=== PATIENT | male | born 1995 | race Two or more races ===

== ENCOUNTER 2025-07-24 10:19 | Outpatient (REF) | payer MEDICAID, SELFPAY ==
--- NOTE | ~2025-07-24 | XR_ITS ---
EXAMINATION: XR TIBIA AND FIBULA, RIGHT CLINICAL INFORMATION: persistent nightly lower leg pain COMPARISON: None available. TECHNIQUE: 4 views of the right tibia and fibula were obtained. FINDINGS: No evidence of acute fracture or malalignment. No suspicious bony lesion. Knee and ankle joint articulation is maintained. No radiopaque foreign body. No abnormal soft tissue calcification.. XR/XR tibia fibula RT 2V IMPRESSION: No radiographic evidence of acute osseous findings. Electronically signed by: Lefty Ansari MD 07/24/2025 10:56 AM EDT
--- OUTSIDE RECORDS SUMMARY | 2025-07-24 09:30 | XMS_ITS | Encounter Summary ---
Author Organization [employer] Address [address] [place] [address] Care Team Providers Care Chemical Maker Name Role Phone Alyssia Grace DO Primary Care Provider Encounter Details Date Type Department Care Team (Late st Contact Info) Description 07/24/2025 9:30 AM EDT Office Visit [facility] MEDICINE [address] [place] [address] Alyssia Grace DO [address] [place], [place] [id number] Routine history and physical examination of adult (Primary Dx); Elevated BP without diagnosis of hypertension; Bradycardia; Palpitations; Snoring; Sleep-disordered breathing; Epigastric pain; Chronic pain of right lower extremity; Decreased visual acuity; BMI 26.0-26.9,adult; Dietary counseling; Exercise counseling Social History Tobacco Use Types Packs/Day Years Used Date Smoking Tobacco: Never Smokeless Tobacco: Never Alcohol Use Standard Drinks/Week Comments Never 0 (1 standard drink = 0.6 oz pur e alcohol) Depression Answer Date Recorded Patient Health Questionnaire-9 Score 2 07/24/2025 Patient Health Questionnaire-9 Score 2 07/24/2025 Last PHQ-9: Questionnaire Data Not on file 1 Housing Stability Answer Date Recorded What is your housing situation today? I have aniya olivas 07/16/[address] you li ve. Do you have problems with any of the following? None of the above 07/16/2025 Food Insecurity Answer Date Recorded Within the past 12 months, y ou worried that your food would run out before you got money to buy more: Never True 07/16/2025 Within the past 12 months,th e food you bought just didn't last and you didn't have enough money to get more: Never True 04/2025 Transportation Answer Date Recorded In the past 12 months, has l ack of transportation kept you from medical appts, meetings, work or from getting things needed for daily living? No 07/16/2025 Utilities Answer Date Recorded In the past 12 months, has t he electric, gas, oil or water company threatened to shut off services in your home? No 07/16/2025 Depression Answer Date Recorded Patient Health Questionnaire-2 Score 0 07/24/2025 Internet Access Answer Date Recorded Internet Access Q1 Yes 07/16/2025 Internet Access Q2 Not on file 07/16/2025 Sex and Gender Information Value Date Recorded Sex Assigned at Male 02/14/2025 8:07 AM EDT Legal Sex Male 8:04 AM EDT Gender Identity Male 02/14/2025 8:07 AM EDT Sexual Orientation Straight 02/14/2025 8: 07 AM EDT documented as of this encounter Last Filed Vital Signs Vital Sign Reading Time Taken Comments Blood Pressure 160/90 07/24/2025 9:34 AM EDT Pulse 48 07/24/2025 9:34 AM EDT Temperature 36.8 C (98.3 F) 07/24/2025 9:34 AM EDT Respiratory Rate 21 07/24/2025 9:34 AM EDT Oxygen Saturation 99% 07/24/2025 9:34 AM EDT Inhaled Oxygen Concentration - - Weight 99.8 kg (220 lb) 07/24/2025 9:34 AM EDT Height 193 cm (6' 4 ) 07/24/2025 9:34 AM EDT Body Mass Index 26.78 07/24/2025 9:34 AM EDT documented in this encounter Functional Status * Over the past 2 weeks, how often have you been bothered by any of the following problems? Question Answer Date of Assessment Author Patient Health Questionnaire -2 Score 0 07/24/2025 9:35 AM EDT Fernanda Hernandez MA * Little interest or pleasure in doing things Answer Date of Assessment Author Not at all 07/24/2025 9:35 AM EDT Monty Hernandez MA * Feeling down, depressed, or hopeless Answer Date of Assessment Author Not at all 07/24/2025 9:35 AM EDMonty Cooper MA * Trouble falling or staying asleep, or sleeping too much Answer Date of Assessment Author Several days 07/24/2025 9:35 AM Monty Daly MA * Feeling tired or having little energy Answer Date of Assessment Author Several days 07/24/2025 9:35 AM Monty Daly MA * Poor appetite or overeating Answer Date of Assessment Author Not at all 07/24/2025 9:35 AM Monty Daly MA * Feeling bad about yourself - or that you are a failure or have let yourself or your family down Answer Date of Assessment Author Not at all 07/24/2025 9:35 AM Fernanda Daly MA * Trouble concentrating on things, such as reading the newspaper or watching television Answer Date of Assessment Author Not at all 07/24/2025 9:35 AM Monty Daly MA * Moving or speaking so slowly that other people could have noticed? Or the opposite - being so fidgety or restless that you have been moving around a lot more than usual. Answer Date of Assessment Author Not at all 07/24/2025 9:35 AM Monty Daly MA * Thoughts that you would be better off or hurting yourself in some way Answer Date of Assessment Author Not at all 07/24/2025 9:35 AM Monty Daly MA * Patient Health Questionnaire-9 Score Answer Date of Assessment Author 2 07/24/2025 9:35 AM Monty Daly MA * How difficult have these problems made it for you to do your work, take care of things at home, or get along with other people? Answer Date of Assessment Author Not difficult at all 07/24/2025 9:35 AM Fernanda Funez MA documented as of this encounter Plan of Treatment Scheduled Orders Name Type Priority Associated Diagnoses Orde r Schedule T4, Free Lab Routine Routine history and physical examination of adult Elevated BP without diagnosis of hypertension Bradycardia Palpitations Snoring Sleep-disordered breathing Epigastric pain Chronic pain of right lower extremity Decreased visual acuity BMI 26.0-26.9,adult Expected: 07/24/2025 (Approximate), Expires: 07/24/2026 Vitamin D, 25-Hydroxy, Total, Immunoassay Lab Routine Routine history and physical examination of adult Elevated BP without diagnosis of hypertension Bradycardia Palpitations Snoring Sleep-disordered breathing Epigastric pain Chronic pain of right lower extremity Decreased visual acuity BMI 26.0-26.9,adult Expected: 07/24/2025 (Approximate), Expires: 07/24/2026 Lipid Panel, Standard Lab Routine Routine history and physical examination of adult Elevated BP without diagnosis of hypertension Bradycardia Palpitations Snoring Sleep-disordered breathing Epigastric pain Chronic pain of right lower extremity Decreased visual acuity BMI 26.0-26.9,adult Expected: 07/24/2025 (Approximate), Expires: 07/24/2026 TSH Lab Routine Routine history and physical examination of adult Elevated BP without diagnosis of hypertension Bradycardia Palpitations Snoring Sleep-disordered breathing Epigastric pain Chronic pain of right lower extremity Decreased visual acuity BMI 26.0-26.9,adult Expected: 07/24/2025 (Approximate), Expires: 07/24/2026 Hepatic Function Panel Lab Routine Routine history and physical examination of adult Elevated BP without diagnosis of hypertension Bradycardia Palpitations Snoring Sleep-disordered breathing Epigastric pain Chronic pain of right lower extremity Decreased visual acuity BMI 26.0-26.9,adult Expected: 07/24/2025 (Approximate), Expires: 07/24/2026 Hemoglobin A1c Lab Routine Routine history and physical examination of adult Elevated BP without diagnosis of hypertension Bradycardia Palpitations Snoring Sleep-disordered breathing Epigastric pain Chronic pain of right lower extremity Decreased visual acuity BMI 26.0-26.9,adult Expected: 07/24/2025 (Approximate), Expires: 07/24/2026 Basic Metabolic Panel Lab Routine Routine history and physical examination of adult Elevated BP without diagnosis of hypertension Bradycardia Palpitations Snoring Sleep-disordered breathing Epigastric pain Chronic pain of right lower extremity Decreased visual acuity BMI 26.0-26.9,adult Expected: 07/24/2025 (Approximate), Expires: 07/24/2026 CBC Lab Routine Routine history and physical examination of adult Elevated BP without diagnosis of hypertension Bradycardia Palpitations Snoring Sleep-disordered breathing Epigastric pain Chronic pain of right lower extremity Decreased visual acuity BMI 26.0-26.9,adult Expected: 07/24/2025, Expires: 07/24/2026 Albumin, Random Urine W/Creatinine Lab Routine Routine history and physical examination of adult Elevated BP without diagnosis of hypertension Bradycardia Palpitations Snoring Sleep-disordered breathing Epigastric pain Chronic pain of right lower extremity Decreased visual acuity BMI 26.0-26.9,adult Expected: 07/24/2025 (Approximate), Expires: 07/24/2026 Hepatitis B surface antigen, EIA Lab Routine Routine history and physical examination of adult Elevated BP without diagnosis of hypertension Bradycardia Palpitations Snoring Sleep-disordered breathing Epigastric pain Chronic pain of right lower extremity Decreased visual acuity BMI 26.0-26.9,adult Expected: 07/24/2025 (Approximate), Expires: 07/24/2026 Chlamydia/N. Gonorrhoeae RNA, TMA, Urogenitial Microbiology Routine Routine history and physical examination of adult Elevated BP without diagnosis of hypertension Bradycardia Palpitations Snoring Sleep-disordered breathing Epigastric pain Chronic pain of right lower extremity Decreased visual acuity BMI 26.0-26.9,adult Ordered: 07/24/2025 HIV-1/2 Antigen and Antibodies, Fourth Generation, with Reflexes Lab Routine Routine history and physical examination of adult Elevated BP without diagnosis of hypertension Bradycardia Palpitations Snoring Sleep-disordered breathing Epigastric pain Chronic pain of right lower extremity Decreased visual acuity BMI 26.0-26.9,adult Expected: 07/24/2025 (Approximate), Expires: 07/24/2026 Hepatitis C Antibody with Reflex to HCV, RNA, Quantitative, Real-Time PCR Lab Routine Routine history and physical examination of adult Elevated BP without diagnosis of hypertension Bradycardia Palpitations Snoring Sleep-disordered breathing Epigastric pain Chronic pain of right lower extremity Decreased visual acuity BMI 26.0-26.9,adult Expected: 07/24/2025, Expires: 07/24/2026 RPR (Monitor) with Reflex to Titer Lab Routine Routine history and physical examination of adult Elevated BP without diagnosis of hypertension Bradycardia Palpitations Snoring Sleep-disordered breathing Epigastric pain Chronic pain of right lower extremity Decreased visual acuity BMI 26.0-26.9,adult Expected: 07/24/2025, Expires: 07/24/2026 Hepatitis B Surface Antibody, Qualitative Lab Routine Routine history and physical examination of adult Elevated BP without diagnosis of hypertension Bradycardia Palpitations Snoring Sleep-disordered breathing Epigastric pain Chronic pain of right lower extremity Decreased visual acuity BMI 26.0-26.9,adult Expected: 07/24/2025 (Approximate), Expires: 07/24/2026 Varicella zoster antibody, IgG Lab Routine Routine history and physical examination of adult Elevated BP without diagnosis of hypertension Bradycardia Palpitations Snoring Sleep-disordered breathing Epigastric pain Chronic pain of right lower extremity Decreased visual acuity BMI 26.0-26.9,adult Expected: 07/24/2025 (Approximate), Expires: 07/24/2026 Measles, Mumps, and Rubella (MMR) Antibodies (IgG) Panel, Immune Status Lab Routine Routine history and physical examination of adult Elevated BP without diagnosis of hypertension Bradycardia Palpitations Snoring Sleep-disordered breathing Epigastric pain Chronic pain of right lower extremity Decreased visual acuity BMI 26.0-26.9,adult Expected: 07/24/2025 (Approximate), Expires: 07/24/2026 Hepatitis A Antibody, Total Lab Routine Routine history and physical examination of adult Elevated BP without diagnosis of hypertension Bradycardia Palpitations Snoring Sleep-disordered breathing Epigastric pain Chronic pain of right lower extremity Decreased visual acuity BMI 26.0-26.9,adult Expected: 07/24/2025 (Approximate), Expires: 07/24/2026 Hepatitis B Core Antibody, Total Lab Routine Routine history and physical examination of adult Elevated BP without diagnosis of hypertension Bradycardia Palpitations Snoring Sleep-disordered breathing Epigastric pain Chronic pain of right lower extremity Decreased visual acuity BMI 26.0-26.9,adult Expected: 07/24/2025 (Approximate), Expires: 07/24/2026 T-SPOT .TB Lab Routine Routine history and physical examination of adult Elevated BP without diagnosis of hypertension Bradycardia Palpitations Snoring Sleep-disordered breathing Epigastric pain Chronic pain of right lower extremity Decreased visual acuity BMI 26.0-26.9,adult Expected: 07/24/2025 (Approximate), Expires: 07/24/2026 documented as of this encounter Procedures Procedure Name Priority Date/Time Associated Diagnosis Comments XR TIBIA FIBULA 2 VIEWS RIGHT Routine 07/24/2025 10:45 AM EDT Routine history and physical examination of adult Elevated BP without diagnosis of hypertension Bradycardia Palpitations Snoring Sleep-disordered breathing Epigastric pain Chronic pain of right lower extremity Decreased visual acuity BMI 26.0-26.9,adult documented in this encounter Results * XR Tibia Fibula 2 Views Right (07/24/2025 10:45 AM EDT) Anatomical Region Laterality Modality Lower Extremities, Lower Leg Right Rad iographic Imaging 07/24/2025 10:4 5 AM EDT Narrative 07/24/2025 10:59 AM EDT [address] [address] XRay Report Signed Patient: Marco Chapman MR#: [id number] : 1995 Acct:[id number] Age/Sex: 29 / M ADM Date: 07/24/25 Loc: .HHCX Attending Dr: Alyssia Grace DO Ordering Physician: Alyssia Grace DO Date of Service: 07/24/25 Procedure(s): XR tibia fibula RT 2V Accession Number(s): [id number] cc: Alyssia Grace DO Reason for Exam: persistent nightly lower leg pain EXAMINATION: XR TIBIA AND FIBULA, RIGHT CLINICAL INFORMATION: persistent nightly lower leg pain COMPARISON: None available. TECHNIQUE: 4 views of the right tibia and fibula were obtained. FINDINGS: No evidence of acute fracture or malalignment. No suspicious bony lesion. Knee and ankle joint articulation is maintained. No radiopaque foreign body. No abnormal soft tissue calcification.. XR/XR tibia fibula RT 2V IMPRESSION: No radiographic evidence of acute osseous findings. Electronically signed by: Lefty Ansari MD 07/24/2025 10:56 AM EDT Dictated By: Lefty Ansari MD Signed By: <Electronically signed by Lefty Ansari MD in OV> 07/24/25 1056 DD/ 1045 TD/TT: 07/24/25 1049 Test Analyst: SONIDO Procedure Note Donotuseinterpreter, Image - 07/24/[address] [address] XRay Report Signed Patient: Marco ChapmanMR#: [id number] : 1995Acct:[id number] Age/Sex: 29 / MADM Date: 07/24/25 Loc: HO.HHCX Attending Dr: Alyssia Grace DO Ordering Physician: Alyssia Grace DO Date of Service: 07/24/25 Procedure(s): XR tibia fibula RT 2V Accession Number(s): [id number] cc: Alyssia Grace DO Reason for Exam: persistent nightly lower leg pain EXAMINATION: XR TIBIA AND FIBULA, RIGHT CLINICAL INFORMATION: persistent nightly lower leg pain COMPARISON: None available. TECHNIQUE: 4 views of the right tibia and fibula were obtained. FINDINGS: No evidence of acute fracture or malalignment. No suspicious bony lesion. Knee and ankle joint articulation is maintained. No radiopaque foreign body. No abnormal soft tissue calcification.. XR/XR tibia fibula RT 2V IMPRESSION: No radiographic evidence of acute osseous findings. Electronically signed by: Lefty Ansari MD 07/24/2025 10:56 AM EDT Dictated By: Lefty Ansari MD Signed By: <Electronically signed by Lefty Ansari MD in OV> 07/24/25 1056 DD/ 1045 TD/TT: 07/24/25 1049 Test Analyst: SONIDO Alyssia Grace DO IMG XR PROCEDURES Final Resu lt documented in this encounter Visit Diagnoses Diagnosis Routine history and physical examination of adult- Primary Elevated BP without diagnosis of hypertension Bradycardia Other specified cardiac dysrhythmias Palpitations Snoring Other dyspnea and respiratory abnormality Sleep-disordered breathing Other sleep disturbances Epigastric pain Abdominal pain, epigastric Chronic pain of right lower extremity Decreased visual acuity BMI 26.0-26.9,adult Dietary counseling Dietary surveillance and counseling Exercise counseling documented in this encounter Additional Health Concerns Assessment Noted Time PHQ-9 Depression Total Score: 2 07/24/20 9:35 AM EDT documented as of this encounter Care Teams Chemical Maker Relationship Specialty Start Date End Date Alyssia Grace DO [address] [place] [id number] PCP - General Family Medicine 07/24/25 documented as of this encounter
--- OUTSIDE RECORDS SUMMARY | 2025-07-24 12:16 | XMS_ITS | Clinical Summary ---
Author Organization [employer] Address [address] [place] [address] Care Team Providers Care Bulk Folder Name Role Phone Alyssia Grace DO Primary Care Provider Allergies No known active allergies Medications gabapentin (Neurontin) 300 MG capsule Take 1 capsule (300 mg) by mouth at bedtime. 30 capsule 3 5 07/24/20 26 Active omeprazole OTC (PriLOSEC OTC) 20 MG EC tablet Take 1 tablet (20 mg) by mouth before breakfast. Do not crush, chew, or split. 30 tablet 3 5 07/24/20 26 Active Blood Pressure kit 1 each 1 (one) time per week. 1 kit Active acetaminophen (Tylenol 8 Hour) 650 MG ER tablet Take 1 tablet (650 mg) by mouth every 8 (eight) hours if needed for mild pain. Do not crush, chew, or split. 40 tablet 1 5 08/23/20 25 Active Diclofenac Sodium 1 % gel Apply 2 g topically if needed in the morning, at noon, in the evening, and at bedtime (pain). 150 g 3 5 Active Encounters Date Type Department Care Team Description 07/24/2025 9:30 AM EDT Office Visit [facility] MEDICINE [address] [place] [address] Alyssia Grace DO Routine history and physical examination of adult (Primary Dx); Elevated BP without diagnosis of hypertension; Bradycardia; Palpitations; Snoring; Sleep-disordered breathing; Epigastric pain; Chronic pain of right lower extremity; Decreased visual acuity; BMI 26.0-26.9,adult; Dietary counseling; Exercise counseling 07/24/2025 Travel 07/18/2025 Telephone [facility] MED[facility] [address] [place] [address] Alyssia Grace DO Chart Prep 07/16/2025 Patient Outreach [facility] [address] [place] [address] Alyssia Grace, Pre-visit Planning (SDOH screening negative and tobacco screening negative) from Last 3 Months Family History Medical History Relation Name Comments Diabetes Mother Hypertension Mother Stomach cancer Mother's Sister 1 Breast cancer Mother's Sister 2 Prediabetes Sister Substance use Sister Relation Name Status Comments Mother Mother's Sister 1 Mother's Sister 2 Sister Social History Tobacco Use Types Packs/Day Years Used Date Smoking Tobacco: Never Smokeless Tobacco: Never Tobacco Cessation:Counseling Given: Not Answered Alcohol Use Standard Drinks/Week Comments Never 0 [...] Orientation Straight 02/14/2025 8: 07 AM EDT Last Filed Vital Signs Vital Sign Reading [...] Mass Index 26.78 07/24/2025 9:34 AM EDT Plan of Treatment Health Maintenance Due Date Last Done Comments Dental Oral Exam 1995 Dental Prophylaxis 1993 Dental X-Ray: Full Mouth 1993 HIV Screening 1993 Family Planning (PISQ) 2008 HPV Vaccines (1 - Male 3-dos e series) 2008 Hepatitis C Screening 2011 DTaP/Tdap/Td Vaccines (1 - Tdap) 2012 Hepatitis B Vaccines (1 of 3 - 19+ 3-dose series) 2012 COVID-19 Vaccine (1 - 2023-2 5 season) 2025 Influenza Vaccine (#1) 2025 Dental X-Ray: Bitewings 02/28/2026 02/27/2025 SDOH Screening 07/16/2026 07/16/2025 Alcohol/Substance Use Screening 07/24/2026 07/24/2025 Depression Screening 07/24/2026 07/24/2025, 07/24/2025 Disability Screening 07/24/2026 07/24/2025 Tobacco Screening 07/24/2026 07/24/2025 Zoster Vaccines (1 of 2) 2043 RSV Patients and Patients Aged 60 years or older (1 - 1-dose 75+ series) 2068 HIB Vaccines Aged Out No longer eligi ble based on patient's age to complete this topic Hepatitis A Vaccines Aged Out No long er eligible based on patient's age to complete this topic IPV Vaccines Aged Out No longer eligi ble based on patient's age to complete this topic Meningococcal B Vaccine Aged Out No l onger eligible based on patient's age to complete this topic Meningococcal Vaccine Aged Out No jose nazia eligible based on patient's age to complete this topic Pneumococcal Vaccine: Pediatrics (0 to 5 Years) and At-Risk Patients (6 to 49) Years Aged Out No longer eligible b ased on patient's age to complete this topic RSV under 20 months Aged Out No longe r eligible based on patient's age to complete this topic Rotavirus Vaccines Aged Out No longer eligible based on patient's age to complete this topic Procedures Procedure Name Priority Date/Time Associated Diagnosis Comments XR TIBIA FIBULA 2 VIEWS RIGHT Routine 07/24/2025 10:45 AM EDT Routine history and physical examination of adult Elevated BP without diagnosis of hypertension Bradycardia Palpitations Snoring Sleep-disordered breathing Epigastric pain Chronic pain of right lower extremity Decreased visual acuity BMI 26.0-26.9,adult BITEWING - SINGLE RADIOGRAPHIC IMAGE Routine 02/27/2025 11:30 AM EDT Dental caries from Last 3 Months or Most Recently Relevant to Health Maintenance Results * XR Tibia Fibula 2 Views Right (07/24/2025 10:45 AM EDT) Anatomical Region Laterality Modality Lower Extremities, Lower Leg Right Rad iographic Imaging 07/24/2025 10:4 5 AM EDT Narrative 07/24/2025 10:59 AM EDT [address] [address] XRay Report Signed Patient: Maroc Chapman MR#: [id number] : 1995 Acct:[id number] Age/Sex: 29 / M ADM Date: 07/24/25 Loc: HO.HHCX Attending Dr: Alyssia Grace DO Ordering Physician: Alyssia Grace DO Date of Service: 07/24/25 Procedure(s): XR tibia fibula RT 2V Accession Number(s): [id number] cc: Alyssia Grace DO Reason for Exam: [...] Lefty Ansari MD 07/24/2025 10:56 AM EDT RP Dictated By: Lefty Ansari MD Signed By: <Electronically signed by Lefty Ansari MD in OV> 07/24/25 1056 DD/ 1045 TD/TT: 07/24/25 1049 Document Processor: SONIDO Procedure Note Donotuseinterpreter, Image - 07/24/[address] [address] XRay Report Signed Patient: Marco ChapmanMR#: [id number] : 1995Acct:[id number] Age/Sex: 29 / MADM Date: 07/24/25 Loc: HO.HHCX Attending Dr: Alyssia Grace DO Ordering Physician: Alyssia Grace DO Date of Service: 07/24/25 Procedure(s): XR tibia fibula RT 2V Accession Number(s): [id number] cc: Alyssia Grace DO Reason for Exam: [...] Lefty Ansari MD 07/24/2025 10:56 AM EDT RP Dictated By: Lefty Ansari MD Signed By: <Electronically signed by Lefty Ansari MD in OV> 07/24/25 1056 DD/ 1045 TD/TT: 07/24/25 1049 Document Processor: SONIDO Alyssia Grace DO IMG XR PROCEDURES Final Resu lt from Last [address] [place] [address] [address] [place] [address] LIMITED HSN FULL DENTAL-[facility] MEDICAID STAND ADULT Care Teams Bulk Folder Relationship Specialty Start Date End Date Alyssia Grace DO [address] [place] [id number] PCP - General Family Medicine 07/24/25
--- OUTSIDE RECORDS SUMMARY | 2025-07-24 12:16 | XMS_ITS | Encounter Summary ---
Author Organization [facility] Address [address] [place] [address] Care Team Providers Care Homicide Squad Sergeant Name Role Phone Alyssia Grace DO Primary Care Provider Encounter Details Date Type Department Care Team (Latest Contact Info) Description 07/24/2025 Travel Social History Tobacco Use Types Packs/Day Years [...] AM EDT documented as of this encounter Functional Status * Over the past 2 weeks, how often have you been bothered by any of the following problems? Question Answer Date of Assessment Author Patient Health Questionnaire -2 Score 0 07/24/2025 9:35 AM EDT Fernanda Hernandez MA * Little interest or pleasure in doing things Answer Date of Assessment Author Not at all 07/24/2025 9:35 AM NGAT Monty Hernandez MA * Feeling down, depressed, or hopeless Answer Date of Assessment Author Not at all 07/24/2025 9:35 AM NGAT Monty Hernandez MA * Trouble falling or staying asleep, or sleeping too much Answer Date of Assessment Author Several days 07/24/2025 9:35 AM EDT Monty Hernandez MA * Feeling tired or having little energy Answer Date of Assessment Author Several days 07/24/2025 9:35 AM NGAT Monty Hernandez MA * Poor appetite or overeating Answer Date of Assessment Author Not at all 07/24/2025 9:35 AM NGAT Monty Hernandez MA * Feeling bad about yourself - or that you are a failure or have let yourself or your family down Answer Date of Assessment Author Not at all 07/24/2025 9:35 AM NGAT Monty Hernandez MA * Trouble concentrating on things, such as reading the newspaper or watching television Answer Date of Assessment Author Not at all 07/24/2025 9:35 AM NGAT Monty Hernandez MA * Moving or speaking so slowly [...] 9:35 AM EDT Monty Hernandez MA * Patient Health Questionnaire-9 Score Answer Date of Assessment Author 2 07/24/2025 9:35 AM EDT Monty Hernandez MA * How difficult have these problems made it for you to do your work, take care of things at home, or get along with other people? Answer Date of Assessment Author Not difficult at all 07/24/2025 9:35 AM EDT Fernanda Chew MA documented as of this encounter Plan of Treatment Not on file documented as of this encounter Visit Diagnoses Not on filedocumented in this encounter Additional Health Concerns Assessment Noted Time PHQ-9 Depression Total Score: 2 07/24/20 9:35 AM EDT documented as of this encounter Care Teams Homicide Squad Sergeant Relationship Specialty Start Date End Date Alyssia Grace DO [address] [place] [id number] PCP - General Family Medicine 07/24/25 documented as of this encounter
--- OUTSIDE RECORDS SUMMARY | 2025-07-24 12:16 | XMS_ITS | Patient Health Record ---
Author Organization [facility] Address [address] [place] [address] Care Team Providers Care Professor Of Education Name Role Phone [facility] Primary Care Provider Unavailable Socorro Sal Unavailable [phone] Reason For Referral No Information Plan Of Treatment No Information Insurance Providers Payer Name Payer Address Payer Phone Subscriber Number Group Number Insured Name Patient Relationship to Insured Coverage Start Date Coverage End Date [place] Medicaid Standard [address] [place] [address] [id number] Damien Feliciano Self - patient is the insured 1 Insurance Pending [address] [place] [address] Damien Feliciano Self - patient is the insured 0
[2025-07-24 13:25] LABS: Hematocrit 47.8 % (42.0-52.0); Hemoglobin 15.0 g/dl (14.0-18.0); Mean Corpuscular HGB Conc 31.4 g/dl (31.0-36.0); Mean Corpuscular Hemoglobin 26.4 pg (27.0-33.0); Mean Corpuscular Volume 84.2 fL (80.0-98.0); NRBC Abs Auto 0.000 X10*3/uL (0.0-0.012); NRBC Pct Auto 0.0 /100WBC (0.0-0.2); Platelet Count 345 X10*3/uL (160-400); Red Blood Count 5.68 X10*6/uL (4.60-5.80); White Blood Count 9.0 X10*3/uL (4.8-10.8)
[2025-07-24 14:10] LABS: Microalbum/Creatinine Ratio Ur 3.9 ug/mg cr (<30)
[2025-07-24 14:17] LABS: Hemoglobin A1C 141.3173 umol/L; Total Hemoglobin (HGBA1C) 3755.0614 umol/L
[2025-07-24 14:33] LABS: Alanine Aminotransferase 55 U/L (0-40); Albumin Level 5.4 g/dL (3.5-5.0); Alkaline Phosphatase 78 U/L (39-117); Anion Gap 12 (12-20); Aspartate Amino Transferase 38 U/L (5-37); Blood Urea Nitrogen 9 mg/dL (9-16); Calcium 9.9 mg/dL (8.4-10.2); Carbon Dioxide 28 mmol/L (22-29); Chloride 107 mmol/L (96-108); Cholesterol 247 mg/dL (<200); Estimated Glomerular Filt Rate > 60; Free T4 (Free Thyroxine) 0.98 ng/dL (0.71-1.85); HDL Cholesterol 43 mg/dL (>40); Potassium 3.5 mmol/L (3.3-5.1); Sodium 143 mmol/L (135-145); Thyroid Stimulating Hormone 1.22 uIU/mL (0.32-4.0); Total Protein 8.0 g/dL (6.5-8.0); Triglycerides 96 mg/dL (<150)
[2025-07-25 04:50] LABS: HBS Num1 56.50 mIU/mL (0-7.99); HBc Num1 0.06 S/CO (0.00-0.79); HBsAGNum1 0.55 S/CO (0.00-0.99); HIV Num 1 0.05 S/CO (0.00-0.99); Hepatitis B Surface Antigen Negative (Negative); ~HepC Num1 0.05 S/CO (0.00-0.79); ~Hepatitis B Surface Antibody REACTIVE (Nonreactive); ~Hepatitis C Antibody Nonreactive (Nonreactive)
[2025-07-25 06:33] LABS: Rubeola IgG (Measles) 232.00 AU/mL
[2025-07-26 03:41] LABS: ~Hepatitis A Antibody IgG 0.28 S/CO (0.00-0.99)
[2025-07-26 22:18] LABS: TS Negative Control Passed; TS Panel A 0; TS Panel B 0; TS Positive Control Passed; TSpotTB Negative (Negative)
== END 2025-07-24 10:20 | disposition home or self-care (01) ==
LOC: HO.HHCX 10:19
PROVIDERS: PCP Family Medicine; Visit Provider Family Medicine
DX: M79.604 Pain in right leg (principal); Z00.00 Encounter for general adult medical examination without abnormal findings; Z11.1 Encounter for screening for respiratory tuberculosis; Z11.4 Encounter for screening for human immunodeficiency virus [HIV]; Z11.59 Encounter for screening for other viral diseases; Z01.84 Encounter for antibody response examination; R03.0 Elevated blood-pressure reading, without diagnosis of hypertension; R00.1 Bradycardia, unspecified; R00.2 Palpitations; R06.83 Snoring; G47.30 Sleep apnea, unspecified; R10.13 Epigastric pain; G89.29 Other chronic pain; H54.7 Unspecified visual loss; Z68.26 Body mass index [BMI] 26.0-26.9, adult
CPT/HCPCS: 36415; 73590; 80048; 80061; 80076; 82043; 82306; 82570; 83036; 84439; 84443; 85027; 86481; 86592; 86704; 86706; 86708; 86735; 86762; 86765; 86787; 86803; 87340; 87389

== ENCOUNTER → 2025-07-24 10:30 | Outpatient (BNV) | payer MEDICAID, SELFPAY | PROVIDERS: PCP Family Medicine; Visit Provider Radiology Diagnostic Ultrasound | DX: M79.661 Pain in right lower leg (principal) | CPT/HCPCS: 73590 ==

== ENCOUNTER 2025-09-24 09:14 | Outpatient (REF) | payer MEDICAID, SELFPAY ==
--- OUTSIDE RECORDS SUMMARY | 2025-09-03 16:57 | XMS_ITS | Patient Health Record ---
Author Organization [facility] Address [address] [place] [address] Care Team Providers Care Plant Health Care Technician Name Role Phone [facility] Primary Care Provider Unavailable oScorro Sal Unavailable [phone] Reason For Referral No Information Plan Of Treatment No Information Insurance Providers Payer Name Payer Address Payer Phone Subscriber Number Group Number Insured Name Patient Relationship to Insured Coverage Start Date Coverage End Date [place] Medicaid Standard [address] [place] [address] [id number] Damien Feliciano Self - patient is the insured 1 Insurance Pending [address] [place] [address] Damien Feliciano Self - patient is the insured 0
--- OUTSIDE RECORDS SUMMARY | 2025-09-03 16:57 | XMS_ITS | Clinical Summary ---
Author Organization [employer] [facility] Address [address] [place] [address] 7 [place] [address] Care Team Providers Care Railway Head Tender Name Role Phone Alyssia Grace DO Primary [...] 1 (one) time per week. 1 kit 5 Active Diclofenac Sodium 1 % gel Apply 2 g topically if needed in the morning, at noon, in the evening, and at bedtime (pain). 150 g 3 5 Active Additional Information Patient not taking.Reported on 08/05/2025 cholecalciferol (Vitamin D-3) 50 MCG (1999 UT) capsule Take 1 capsule (50 mcg) by mouth Once per day. 90 capsule 3 5 Active acetaminophen (Tylenol 8 Hour) 650 MG ER tablet Take 1 tablet (650 mg) by mouth every 8 (eight) hours if needed for mild pain. Do not crush, chew, or split. 40 tablet 1 5 08/23/20 25 Active Problems Problem Noted Date Diagnosed Date Severe dental caries 08/05/2025 Open fracture of tooth 08/05/2025 Encounters Date Type Department Care Team Description 08/20/2025 Orders Only [facility] MEDICINE [address] [place] [phone] Alyssia Grace DO Elevated LFTs (Primary Dx) 08/07/[address] [facility] MEDICINE [address] [place] [phone] Alyssia Grace DO 08/05/2025 11:30 AM EDT Office Visit [facility] ADULT DENTAL [address] [place] [phone] Fabien Webb, [place] Open fracture of tooth, sequela (Primary Dx); Severe dental caries 07/24/2025 9:30 AM EDT Office Visit [address] [phone] Alyssia Grace DO Routine history and physical examination of adult (Primary Dx); Elevated BP without diagnosis of hypertension; Bradycardia; Palpitations; Snoring; Sleep-disordered breathing; Epigastric pain; Chronic pain of right lower extremity; Decreased visual acuity; BMI 26.0-26.9,adult; Dietary counseling; Exercise counseling 07/24/2025 Travel 07/18/[address] [phone] Alyssia Grace DO Chart Prep 07/16/2025 Patient Outreach [address] [phone] Alyssia Grace DO Pre-visit Planning (SDOH screening negative and tobacco screening negative) from Last 3 Months Family History Medical History Relation Name Comments Diabetes Mother Hypertension Mother Stomach cancer Mother's Sister 1 Breast cancer Mother's Sister 2 Prediabetes Sister Substance use Sister Relation Name Status Comments Mother Mother's Sister 1 Mother's Sister 2 Sister Social History Tobacco Use Types Packs/Day Years Used Date Smoking Tobacco: Former Cigarettes Smokeless Tobacco: Former Tobacco Cessation:Counseling Given: Not Answered Alcohol Use [...] Sign Reading Time Taken Comments Blood Pressure 144/76 07/24/2025 10:38 AM EDT Pulse 48 07/24/2025 10:38 AM EDT Temperature 36.8 C (98.3 F) [...] Prophylaxis 1993 Dental X-Ray: Full Mouth 1993 Family Planning (PISQ) 2008 HPV Vaccines (1 - Male 3-dos e series) 2008 DTaP/Tdap/Td Vaccines (1 - Tdap) 2012 Hepatitis B Vaccines (1 of 3 - 19+ 3-dose series) 2012 COVID-19 Vaccine (1 - 2024-2 6 season) 2025 Influenza Vaccine (#1) 2025 Dental X-Ray: Bitewings 02/28/2026 02/27/2025 SDOH Screening 07/16/2026 07/16/2025 Alcohol/Substance Use Screening 07/24/2026 07/24/2025 Depression Screening 07/24/2026 07/24/2025, 07/24/2025 Disability Screening 07/24/2026 07/24/2025 Tobacco Screening 08/05/2026 08/05/2025 Zoster Vaccines (1 of 2) 2043 RSV Patients and Patients Aged 60 years or older (1 - 1-dose 75+ series) 2068 HIV Screening Completed 07/24/2025 Hepatitis C Screening Completed 07/24/2025 HIB Vaccines Aged Out No longer eligi [...] Procedure Name Priority Date/Time Associated Diagnosis Comments CASE PRESENTATION, DETAILED AND EXTENSIVE TREATMENT PLANNING Routine 08/05/2025 11:30 AM EDT INTRAORAL - PERIAPICAL FIRST RADIOGRAPHIC IMAGE Routine 08/05/2025 11:30 AM EDT LIMITED ORAL EVALUATION - PROBLEM FOCUSED Routine 08/05/2025 11:30 AM EDT T-SPOT(R).TB Routine 07/24/2025 10:54 AM EDT Routine history and physical examination of adult Elevated BP without diagnosis of hypertension Bradycardia Palpitations Snoring Sleep-disordered breathing Epigastric pain Chronic pain of right lower extremity Decreased visual acuity BMI 26.0-26.9,adult HEPATITIS B CORE AB TOTAL Routine 07/24/2025 10:54 AM EDT Routine history and physical examination of adult Elevated BP without diagnosis of hypertension Bradycardia Palpitations Snoring Sleep-disordered breathing Epigastric pain Chronic pain of right lower extremity Decreased visual acuity BMI 26.0-26.9,adult HEPATITIS A ANTIBODY, TOTAL Routine 07/24/2025 10:54 AM EDT Routine history and physical examination of adult Elevated BP without diagnosis of hypertension Bradycardia Palpitations Snoring Sleep-disordered breathing Epigastric pain Chronic pain of right lower extremity Decreased visual acuity BMI 26.0-26.9,adult MEASLES, MUMPS, AND RUBELLA (MMR) AB (IGG) PANEL, IMMUNE STATUS Routine 07/24/2025 10:54 AM EDT Routine history and physical examination of adult Elevated BP without diagnosis of hypertension Bradycardia Palpitations Snoring Sleep-disordered breathing Epigastric pain Chronic pain of right lower extremity Decreased visual acuity BMI 26.0-26.9,adult VARICELLA ZOSTER ANTIBODY, IGG Routine 07/24/2025 10:54 AM EDT Routine history and physical examination of adult Elevated BP without diagnosis of hypertension Bradycardia Palpitations Snoring Sleep-disordered breathing Epigastric pain Chronic pain of right lower extremity Decreased visual acuity BMI 26.0-26.9,adult HEPATITIS B SURFACE ANTIBODY, QUALITATIVE Routine 07/24/2025 10:54 AM EDT Routine history and physical examination of adult Elevated BP without diagnosis of hypertension Bradycardia Palpitations Snoring Sleep-disordered breathing Epigastric pain Chronic pain of right lower extremity Decreased visual acuity BMI 26.0-26.9,adult RPR (MONITOR) W/REFL TITER Routine 07/24/2025 10:54 AM EDT Routine history and physical examination of adult Elevated BP without diagnosis of hypertension Bradycardia Palpitations Snoring Sleep-disordered breathing Epigastric pain Chronic pain of right lower extremity Decreased visual acuity BMI 26.0-26.9,adult HEPATITIS C AB W/REFL TO HCV RNA, QN, PCR Routine 07/24/2025 10:54 AM EDT Routine history and physical examination of adult Elevated BP without diagnosis of hypertension Bradycardia Palpitations Snoring Sleep-disordered breathing Epigastric pain Chronic pain of right lower extremity Decreased visual acuity BMI 26.0-26.9,adult HIV 1/2 ANTIGEN/ANTIBODY, FOURTH GENERATION W/RFL Routine 07/24/2025 10:54 AM EDT Routine history and physical examination of adult Elevated BP without diagnosis of hypertension Bradycardia Palpitations Snoring Sleep-disordered breathing Epigastric pain Chronic pain of right lower extremity Decreased visual acuity BMI 26.0-26.9,adult HEPATITIS B SURFACE ANTIGEN, EIA Routine 07/24/2025 10:54 AM EDT Routine history and physical examination of adult Elevated BP without diagnosis of hypertension Bradycardia Palpitations Snoring Sleep-disordered breathing Epigastric pain Chronic pain of right lower extremity Decreased visual acuity BMI 26.0-26.9,adult ALBUMIN, RANDOM URINE W/CREATININE Routine 07/24/2025 10:54 AM EDT Routine history and physical examination of adult Elevated BP without diagnosis of hypertension Bradycardia Palpitations Snoring Sleep-disordered breathing Epigastric pain Chronic pain of right lower extremity Decreased visual acuity BMI 26.0-26.9,adult CBC Routine 07/24/2025 10:54 AM EDT Routine history and physical examination of adult Elevated BP without diagnosis of hypertension Bradycardia Palpitations Snoring Sleep-disordered breathing Epigastric pain Chronic pain of right lower extremity Decreased visual acuity BMI 26.0-26.9,adult BASIC METABOLIC PANEL Routine 07/24/2025 10:54 AM EDT Routine history and physical examination of adult Elevated BP without diagnosis of hypertension Bradycardia Palpitations Snoring Sleep-disordered breathing Epigastric pain Chronic pain of right lower extremity Decreased visual acuity BMI 26.0-26.9,adult HEMOGLOBIN A1C Routine 07/24/2025 10:54 AM EDT Routine history and physical examination of adult Elevated BP without diagnosis of hypertension Bradycardia Palpitations Snoring Sleep-disordered breathing Epigastric pain Chronic pain of right lower extremity Decreased visual acuity BMI 26.0-26.9,adult HEPATIC FUNCTION PANEL Routine 07/24/2025 10:54 AM EDT Routine history and physical examination of adult Elevated BP without diagnosis of hypertension Bradycardia Palpitations Snoring Sleep-disordered breathing Epigastric pain Chronic pain of right lower extremity Decreased visual acuity BMI 26.0-26.9,adult TSH Routine 07/24/2025 10:54 AM EDT Routine history and physical examination of adult Elevated BP without diagnosis of hypertension Bradycardia Palpitations Snoring Sleep-disordered breathing Epigastric pain Chronic pain of right lower extremity Decreased visual acuity BMI 26.0-26.9,adult LIPID PANEL, STANDARD Routine 07/24/2025 10:54 AM EDT Routine history and physical examination of adult Elevated BP without diagnosis of hypertension Bradycardia Palpitations Snoring Sleep-disordered breathing Epigastric pain Chronic pain of right lower extremity Decreased visual acuity BMI 26.0-26.9,adult VITAMIN D,25-OH,TOTAL,IA Routine 07/24/2025 10:54 AM EDT Routine history and physical examination of adult Elevated BP without diagnosis of hypertension Bradycardia Palpitations Snoring Sleep-disordered breathing Epigastric pain Chronic pain of right lower extremity Decreased visual acuity BMI 26.0-26.9,adult T4, FREE Routine 07/24/2025 10:54 AM EDT Routine history and physical examination of adult Elevated BP without diagnosis of hypertension Bradycardia Palpitations Snoring Sleep-disordered breathing Epigastric pain Chronic pain of right lower extremity Decreased visual acuity BMI 26.0-26.9,adult XR TIBIA FIBULA 2 VIEWS RIGHT Routine [...] Recently Relevant to Health Maintenance Results * (ABNORMAL) Vitamin D, 25-Hydroxy, Total, Immunoassay (07/24/2025 10:54 AM EDT) Vitamin D 25-OH Total 29.7(L) >30 ng/mL [facility] Comment: Health Based Reference Values*< 20 ng/mL [id number] ng/mL Insufficient> 30 ng/mL Sufficient*Monica CRANE. N Engl J Med. 2007;357:266-280There is no well-established upper level of normal vitamin Dlevels. Some laboratories use 50 ng/mL as an upper limit ofnormal. However, toxicity is patient-dependent and may occurat any level. Careful correlation with the patient'spresentation is necessary and, if there is concern forvitamin D toxicity, treatment should be consideredirrespective of the serum level.Care must be taken in interpreting Vitamin D results fromdifferent laboratories and methodologies. Published datademonstrated that results from patients undergoinghemodialysis may show a negative bias when tested withvarious automated 25-OH vitamin D assays when compared toLC-MS/MS.When testing samples from patients whose predominant form ofVitamin D is Vitamin D2, such as patients receiving VitaminD2 supplementation, results that are subtherapeutic shouldbe confirmed with another method such as LC-MS/MS. Blood Venous blood specimen / Unknown 07/24/2025 10:54 AM EDT 07/24/2025 1:07 PM EDT us Alyssia Grace DO LAB BLOOD ORDERABLES Final R esult [facility] [address] [place] [address] [phone] * T-SPOT??.TB (07/24/2025 10:54 AM EDT) T Spot TB Negative Negative [facility] Comment:A negative test resu lt does not exclude the possibilityof exposure to or infection with Mycobacteriumtuberculosis (M. tuberculosis). Patients with recentexposure to TB infected individuals exhibiting anegative T-SPOT.TB result should be considered forretesting within 6 weeks or if other relevant clinicalsymptoms indicate. Results from T-SPOT.TB testing mustbe used in conjunction with each individual'sepidemiological history, current medical status,and results of other diagnostic evaluations.The T-SPOT.TB test is qualitative and results arereported as positive, borderline, or negative, giventhat the test controls perform as expected. In linewith the Centers for Disease Control and Prevention's2010 recommendation to report quantitative measurementsalongside the qualitative result, the laboratoryprovides spot counts for informational purposes only.The T-SPOT.TB test should not be interpreted as aquantitative test. TS PANEL A [address] [facility] TS PANEL B [address] [facility] Negative Control Passed [facility] Positive Control Passed [facility] Comment:For additional infor matart, please refer tohttp://education.[employer]/faq/KJI501(This link is being provided for informational/educational purposes only.)THIS TEST WAS PERFORMED AT:[employer] [id number] [place] [id number] STRICKLAND MD,PHD 07/24/2025 10:5 4 AM EDT 07/24/2025 1:07 PM EDT us Alyssia Grace DO LAB BLOOD ORDERABLES Final R esult [facility] [address] [place] [phone] [phone] * (ABNORMAL) Measles, Mumps, and Rubella (MMR) Antibodies??(IgG) Panel, Immune Status (07/24/2025 10:54 AM EDT) [facility] Mumps Virus IgG Antibody <9.00(A) AU/mL [facility] Comment:AU/mL Interpretation ------- <9.00 Not consistent with immunity9.00-10.99 Equivocal>10.99 Consistent with immunityThe presence of mumps IgG antibody suggests immunizationor past or current infection with mumps virus. Rubella IgG Antibody <0.90(A) Index [facility] Comment:Index Interpretation ----- <0.90 Not consistent with immunity 0.90-0.99 Equivocal > or = 1.00 Consistent with immunityThe presence of rubella IgG antibody suggestsimmunization or past or current infection withrubella virus.THIS TEST WAS PERFORMED AT:[employer] [place] [id number] ZEPEDA MD Rubeola IgG (Measles) 232.00 AU/mL [facility] Comment:AU/mL Interpretatio n----- <13.50 Not consistent with jsiwdgoi94.50-16.49 Equivocal>16.49 Consistent with immunityThe presence of measles IgG suggests immunization orpast or current infection with measles virus.For additional information, please refer tohttp://education.[employer]/faq/CQX205(This link is being provided for informational/educational purposes only.) Blood Venous blood specimen / Unknown 07/24/2025 10:54 AM EDT 07/24/2025 1:07 PM EDT us Alyssia Grace DO LAB BLOOD ORDERABLES Final R esult [facility] [address] [place] [phone] [phone] * Albumin, Random Urine W/Creatinine (07/24/2025 10:54 AM EDT) Creatinine, Urine 230.20 mg/dL [facility] Microalbumin Urine 9.0 mg/L [facility] Microalbum Creatinine Ratio Ur 3.9 <30 ug/mg cr [facility] Comment:Albumin/Creatinine R atio Reference Ranges: Normal: < 30 ug/mg creatinine Microalbuminuria: 30 - 300 ug/mg creatinineClinical Albuminuria: > 300 ug/mg creatinine Urine (Urine, Random) 07/24/2025 10:54 AM EDT 07/24/2025 12:59 PM EDT us Alyssia Grace DO LAB URINE ORDERABLES Final R esult [facility] [address] [place] [phone] * Hepatitis C Antibody with Reflex to HCV, RNA, Quantitative, Real-Time PCR (07/24/2025 10:54 AM EDT) Hepatitis C Antibody Nonreactive Nonreactive [facility] Comment:Antibodies to HCV no t detected; does not exclude early acuteHCV infection. Blood Venous blood specimen / Unknown 07/24/2025 10:54 AM EDT 07/24/2025 1:07 PM EDT us Alyssia Grace DO LAB BLOOD ORDERABLES Final R esult Performing Organization Address City/[facility]/ZIP Co de Phone Number [facility] [address] [place] [phone] * Hepatitis A Antibody, Total (07/24/2025 10:54 AM EDT) Hepatitis A Antibody IgG Nonreactive Nonreactive [facility] Blood Venous blood specimen / Unknown 07/24/2025 10:54 AM EDT 07/24/2025 1:07 PM EDT us Alyssia Grace DO LAB BLOOD ORDERABLES Final R esult Performing Organization Address City/[facility]/ZIP Co de Phone Number [facility] [address] [place] [phone] * Hepatitis B surface antigen, EIA (07/24/2025 10:54 AM EDT) Hepatitis B Surface Ag Negative Negative [facility] Blood Venous blood specimen / Unknown 07/24/2025 10:54 AM EDT 07/24/2025 1:07 PM EDT Alyssia Grace DO LAB BLOOD ORDERABLES Final R esult Performing Organization Address [facility]/ZIP Co de Phone Number [facility] [address] [place] [phone] * Hepatitis B Core Antibody, Total (07/24/2025 10:54 AM EDT) Hepatitis B Core Antibody Nonreactive Nonreactive [facility] Blood Venous blood specimen / Unknown 07/24/2025 10:54 AM EDT 07/24/2025 1:07 PM EDT Alyssia Grace DO LAB BLOOD ORDERABLES Final R esult Performing Organization Address [facility] Co de Phone Number [facility] [address] [place] [phone] * RPR (Monitor) with Reflex to??Titer (07/24/2025 10:54 AM EDT) RPR (Monitor) w/Refl Titer NON-REACTI VE NON-REACT LEI [facility] Comment:THIS TEST WAS PERFOR MED AT:[employer] [address] [id number] ZEPEDA MD Rapid Plasma Reagin Ab Titer TNP [facility] Blood Venous blood specimen / Unknown 07/24/2025 10:54 AM EDT 07/24/2025 1:07 PM EDT Alyssia Grace LAB BLOOD ORDERABLES Final R esult Performing Organization Address [facility] Co de Phone Number [facility] [address] [place] [phone] * HIV-1/2 Antigen and Antibodies, Fourth Generation, with Reflexes (07/24/2025 10:54 AM EDT) HIV AB/AG Nonreactive Nonreactive [facility] Comment:HIV-1 p24 Ag and/or HIV-1/HIV-2 Ab not detected.A test result that is nonreactive does not exclude thepossibility of exposure to or infection with HIV-1 and/orHIV-2. Nonreactive results in this assay for individualswith prior exposure to HIV-1 and/or HIV-2 may be due toantigen and antibody levels that are below the limit ofdetection of this assay.[employer] HIV Ag/Ab Combo assay result andsupplemental assay results should be interpreted inconjunction with the patient's clinical presentation,history and other laboratory results. If the results areinconsistent with clinical evidence, additional testing issuggested to confirm the result. Blood Venous blood specimen / Unknown 07/24/2025 10:54 AM EDT 07/24/2025 1:07 PM EDT Alyssia Grace Constant Contact LAB BLOOD ORDERABLES Final R esult Performing Organization Address City/[facility]/ZIP Co de Phone Number [facility] [address] [place] [phone] * Hepatitis B Surface Antibody, Qualitative (07/24/2025 10:54 AM EDT) Pathologist [facility] ~Hepatitis B Surface Antibody REACTIVE Nonreactive [facility] Comment:REACTIVE: > 11.99 mI U/mL Blood Venous blood specimen / Unknown 07/24/2025 10:54 AM EDT 07/24/2025 1:07 PM EDT Alyssia Grace Constant Contact LAB BLOOD ORDERABLES Final R esult Performing Organization Address City/[facility]/ZIP Co de Phone Number [facility] [address] [place] [phone] * (ABNORMAL) CBC (07/24/2025 10:54 AM EDT) White Blood Count 9.0 4.8 - 10.8 X10*3/uL [facility] Red Blood Count 5.68 4.60 - 5.80 X10*6/uL [facility] Hemoglobin 15.0 14.0 - 18.0 g/dl [facility] Hematocrit 47.8 42.0 - 52.0 % [facility] Mean Corpuscular Volume 84.2 80.0 - 98.[address] [facility] Mean Corpuscular Hemoglobin 26.4(L) 27.0 - 33.[address] [facility] Mean Corpuscular HGB Conc 31.4 31.0 - 36.0 g/dl [facility] Red Cell Distribution Width 13.2 11.0 - 16.0 % [facility] Platelet Count 345 160 - 400 X10*3/uL [facility] Mean Platelet Volume 10.5 9.4 - 12.[address] [facility] NRBC Pct Auto 0.0 0.0 - 0.2 /100WBC [facility] NRBC Abs Auto 0.000 0.0 - 0.012 X10*3/uL [facility] Blood Venous blood specimen / Unknown 07/24/2025 10:54 AM EDT 07/24/2025 1:07 PM EDT us Alyssia Grace DO LAB BLOOD ORDERABLES Final R esult [facility] [address] [place] [phone] * Varicella zoster antibody, IgG (07/24/2025 10:54 AM EDT) Pathologist [facility] Varicella IgG Antibody 5.94 S/CO [facility] Comment:Signal to Cut-off S/ CO Interpretation --------- <1.00 Negative - Antibody not detected > or = 1.00 Positive - Antibody detected A positive result indicates that the patient has antibody to VZV but does not differentiate between an active or past infection. The clinical diagnosis must be interpreted in conjunction with the clinical signs and symptoms of the patient. This assay reliably measures immunity due to previous infection but may not be sensitive enough to detect antibodies induced by vaccination. Thus, a negative result in a vaccinated individual does not necessarily indicate susceptibility to VZV infection. A more sensitive test for vaccination-induced immunity is Varicella Zoster Virus Antibody Immunity Screen, ACIF.THIS TEST WAS PERFORMED AT:[employer] [place] [id number] ZEPEDA MD Blood Venous blood specimen / Unknown 07/24/2025 10:54 AM EDT 07/24/2025 1:07 PM EDT Alyssia Grace LAB BLOOD ORDERABLES Final R esult Performing Organization Address [facility]/ZIP Co de Phone Number [facility] [address] [place] [phone] * TSH (07/24/2025 10:54 AM EDT) Pathologist [facility] Thyroid Stimulating Hormone 1.22 0.32 - 4.0 uIU/mL [facility] Comment:TSH 3rd Generation ( [facility] [facility]) Blood Venous blood specimen / Unknown 07/24/2025 10:54 AM EDT 07/24/2025 1:07 PM EDT Alyssia Grace LAB BLOOD ORDERABLES Final R esult Performing Organization Address City/[facility]/ZIP Co de Phone Number [facility] [address] [place] [phone] * T4, Free (07/24/2025 10:54 AM EDT) Free T4 (Free Thyroxine) 0.98 0.71 - 1.85 ng/dL [facility] Blood Venous blood specimen / Unknown 07/24/2025 10:54 AM EDT 07/24/2025 1:07 PM EDT Alyssia Sanjay DO LAB BLOOD ORDERABLES Final R esult [facility] [address] [place] [phone] * Hemoglobin A1c (07/24/2025 10:54 AM EDT) Hemoglobin A1c 5.6 <6.0 % [facility] Comment:Hemoglobin A1C Refer ence Range Adults: 4.8 - 6.0 % Non diabetic: < 6.0 % Goal: < 7.0 %Additional Action Suggested: > 8.0 %Note: Hemoglobin A1c results are invalid for patients with abnormal amounts of HbF. Blood transfusions may impact the HbA1c concentration in the patient sample. Estimated Average Glucose 114 mg/dL [facility] Comment:eAG = Estimated ave rage glucose which is %A1C expressed asaverage glucose, using the formula of the L3H-ZmjeifcIinevns Glucose study (ADAG), Diabetes Care, Vol.31,#8,May. 2007 Blood Venous blood specimen / Unknown 07/24/2025 10:54 AM EDT 07/24/2025 1:07 PM EDT Alyssia Grace DO LAB BLOOD ORDERABLES Final R esult [facility] [address] [place] [phone] * (ABNORMAL) Hepatic Function Panel (07/24/2025 10:54 AM EDT) Bilirubin, Total 0.4 0.0 - 1.0 mg/dL [facility] Bilirubin, Direct 0.1 0.0 - 0.5 mg/dL [facility] Aspartate Amino Transferase 38(H) 5 - 37 U/L [facility] Alanine Aminotransferase 55(H) 0 - 40 U/L [facility] Total Protein 8.0 6.5 - 8.0 g/dL [facility] Albumin Level 5.4(H) 3.5 - 5.0 g/dL [facility] Alkaline Phosphatase 78 39 - 117 U/L [facility] Blood Venous blood specimen / Unknown 07/24/2025 10:54 AM EDT 07/24/2025 1:07 PM EDT Alyssia Grace DO LAB BLOOD ORDERABLES Final R esult Performing Organization Address City/[facility] Co de Phone Number [facility] [address] [place] [phone] * (ABNORMAL) Lipid Panel, Standard (07/24/2025 10:54 AM EDT) Triglycerides 96 <150 mg/dL [facility] Comment:Desirable Triglyceri de: less than 150 mg/dLBorderline High Triglyceride 150-199 mg/dLHigh Triglyceride: 200-499 mg/dLVery High Triglyceride: greater than or equal to 5OO mg/dL Cholesterol 247(H) <200 mg/dL [facility] Comment:Desirable Cholestero l: less than 200 mg/dLBorderline High Cholesterol: 200-239 mg/dLHigh Cholesterol: greater than 239 mg/dL LDL Cholesterol Calculated 185(H) <100 mg/dL [facility] Comment:Desirable LDL: less than 100 mg/dLNear Optimal/Above Optimal LDL: 110- 129 mg/dLBorderline High LDL: 130-159 mg/dLHigh LDL: 160-189 mg/dLVery High LDL: greater than or equal to 190 mg/dL HDL Cholesterol 43 >40 mg/dL [facility] Comment:Desirable HDL: great er than 40 mg/dL Note: This HDL assay may give artificially low results in patients with liver disease. Blood Venous blood specimen / Unknown 07/24/2025 10:54 AM EDT 07/24/2025 1:07 PM EDT Alyssia Grace DO LAB BLOOD ORDERABLES Final R esult Performing Organization Address City/[facility]/ZIP Co de Phone Number [facility] [address] [place] [phone] [phone] * Basic Metabolic Panel (07/24/2025 10:54 AM EDT) Sodium 143 135 - 145 mmol/L [facility] Potassium 3.5 3.3 - 5.1 mmol/L [facility] Chloride 107 96 - 108 mmol/L [facility] Carbon Dioxide 28 22 - 29 mmol/L [facility] Anion Gap 12 12 - [address] [facility] Urea Nitrogen (BUN) 9 9 - 16 mg/dL [facility] Creatinine, Serum 0.86 0.5 - 1.4 mg/dL [facility] Estimated Glomerular Filt Rate >[address] [facility] Comment:Chronic Kidney Disea se: Estimated GFR < 60 mL/min/1.62t5Geisxh Kidney Disease: Estimated GFR < 15 mL/min/1.73m2 Glucose 84 60 - 115 mg/dL [facility] Calcium 9.9 8.4 - 10.2 mg/dL [facility] Blood Venous blood specimen / Unknown 07/24/2025 10:54 AM EDT 07/24/2025 1:07 PM EDT us Alyssia Grace DO LAB BLOOD ORDERABLES Final R esult [facility] [address] [place] [phone] * XR Tibia Fibula 2 Views Right (07/24/2025 10:45 AM EDT) Anatomical Region Laterality Modality Lower Extremities, Lower Leg Right Rad iographic Imaging 07/24/2025 10:4 5 AM EDT Narrative 07/24/2025 10:59 AM EDT [facility] [address] [place] [address] XRay Report Signed Patient: Marco Chapman MR#: [id number] : 1995 Acct:[id number] Age/Sex: 29 / M ADM Date: 07/24/25 Loc: .HHCX Attending Dr: Alyssia Grace DO Ordering Physician: Alyssia Grace DO Date of Service: 07/24/25 Procedure(s): XR tibia fibula RT 2V Accession Number(s): [id number] cc: Alyssia Grace DO Reason for Exam: [...] 07/24/25 1056 DD/ 1045 TD/TT: 07/24/25 1049 Tank Truck Operator: SONIDO Procedure Note Donotuseinterpreter, Image - 07/24/2025 [place] [address] XRay Report Signed Patient: Marco ChapmanMR#: [id number] : 1995Acct:[id number] Age/Sex: 29 / MADM Date: 07/24/25 Loc: HO.HHCX Attending Dr: Alyssia Grace DO Ordering Physician: Alyssia Grace DO Date of Service: 07/24/25 Procedure(s): XR tibia fibula RT 2V Accession Number(s): [id number] cc: Alyssia Grace DO Reason for Exam: [...] 07/24/25 1056 DD/ 1045 TD/TT: 07/24/25 1049 Tank Truck Operator: SONIDO Alyssia Grace DO IMG XR PROCEDURES Final Resu lt from Last [address] [place] [address] LIMITED HS FULL DENTAL-[facility] MEDICAID STAND ADULT Care Teams Railway Head Tender Relationship Specialty Start Date End Date Alyssia Grace DO [address] [place] [phone] PCP - General Family Medicine 07/24/25
--- NOTE | 2025-09-24 09:15 | EMG_ITS ---
Chief complaint: Right leg pain Referred by: Alyssia George DO Procedure done: NCS and EMG of right lower extremity Right peroneal and tibial motor studies were performed with F responses and tibial H-reflex. Right superficial peroneal and sural sensory studies were performed and median and lateral mixed plantars sensory studies were performed and needle examination was performed. Findings: Sensory studies revealed moderately slow conduction velocities with significantly reduced amplitudes. Motor studies were relatively intact. 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
--- OUTSIDE RECORDS SUMMARY | 2025-09-24 10:33 | XMS_ITS | Patient Health Record ---
Author Organization [facility] Address [address] [place] [address] Care Team Providers Care Product Support Technician Name Role Phone [facility] Primary Care Provider Unavailable Socorro Sal Unavailable [phone] Reason For Referral No Information Plan Of Treatment No Information Insurance Providers Payer Name Payer Address Payer Phone Subscriber Number Group Number Insured Name Patient Relationship to Insured Coverage Start Date Coverage End Date [place] Medicaid Standard [address] [place] [phone] [id number] Damien Feliciano Self - patient is the insured 1 Insurance Pending [address] [place] [address] Damien Feliciano Self - patient is the insured 0
--- OUTSIDE RECORDS SUMMARY | 2025-09-24 10:33 | XMS_ITS | Clinical Summary ---
Author Organization [employer] [facility] Address [address] [place] [address] 7 [place] [address] Care Team Providers Care Correctional Medicine Physician Name Role Phone Alyssia Grace DO Primary [...] (one) time per week. 1 kit Active Diclofenac Sodium 1 % gel Apply 2 g topically if needed in the morning, at noon, in the evening, and at bedtime (pain). 150 g 3 Active Additional Information Patient not taking.Reported on 08/05/2025 cholecalciferol (Vitamin D-3) 50 MCG (1999 UT) capsule Take 1 capsule (50 mcg) by mouth Once per day. 90 capsule 3 5 Active Active Problems Problem Noted Date Diagnosed Date Severe dental caries 08/05/2025 Open fracture of tooth 08/05/2025 Encounters Date Type Department Care Team Description 08/20/2025 Orders Only [facility] [address] [place] [address] Alyssia Grace DO Elevated LFTs (Primary Dx) 08/07/2025 Refill [facility] [address] [place] [address] Alyssia Grace DO 08/05/2025 11:30 AM EDT Office Visit [facility] [address] [place] [phone] Fabien Webb, LYNNETTE Open fracture of tooth, sequela (Primary Dx); Severe dental caries 07/24/2025 9:30 AM EDT Office Visit [facility] [address] [place] [phone] Alyssia Grace DO Routine history and physical examination of adult (Primary Dx); Elevated BP without diagnosis of hypertension; Bradycardia; Palpitations; Snoring; Sleep-disordered breathing; Epigastric pain; Chronic pain of right lower extremity; Decreased visual acuity; BMI 26.0-26.9,adult; Dietary counseling; Exercise counseling 07/24/2025 Travel 07/18/[address] [address] Alyssia Grace DO Chart Prep 07/16/2025 Patient Outreach [address] [address] Alyssia Grace DO Pre-visit Planning (SDOH screening [...] - 19+ 3-dose series) 2012 COVID-19 Vaccine ( - 2025-2 6 season) 2025 Influenza Vaccine (#1) 2025 [...] 25-Hydroxy, Total, Immunoassay (07/24/2025 10:54 AM EDT) [facility] Vitamin D 25-OH Total 29.7(L) >30 ng/mL [facility] Comment: Health Based Reference Values*< 20 ng/mL Snuwzlrhf24-42 ng/mL Insufficient> 30 ng/mL Sufficient*Monica CRANE. N [...] DO LAB BLOOD ORDERABLES Final R esult [facility] [address] [place] [phone] * T-SPOT??.TB (07/24/2025 10:54 AM EDT) Pathologist [facility] T Spot TB Negative Negative [facility] Comment:A negative test resu lt [...] as aquantitative test. TS PANEL A 0 [facility] TS PANEL B 0 [facility] Negative Control Passed [facility] Positive Control Passed [facility] Comment:For additional infor matart, please refer tohttp://education.Fitmo/faq/BPC383(This link is being provided for informational/educational purposes only.)THIS TEST WAS PERFORMED AT:[employer] [id number] [place] [phone] STRICKLAND MD,PHD 07/24/2025 10:5 4 AM EDT 07/24/2025 1:07 PM EDT us Alyssia Grace DO LAB BLOOD ORDERABLES Final R esult [facility] [address] [place] [phone] * (ABNORMAL) Measles, Mumps, and Rubella (MMR) Antibodies??(IgG) Panel, Immune Status (07/24/2025 10:54 AM EDT) Mumps Virus IgG Antibody <9.00(A) AU/mL [facility] Comment:AU/mL Interpretation ------- <9.00 Not consistent with immunity9.00-10.99 Equivocal>10.99 Consistent with immunityThe presence of mumps IgG antibody suggests immunizationor past or current infection with mumps virus. Rubella IgG Antibody <0.90(A) Index [facility] Comment:Index Interpretation ----- <0.90 Not consistent with immunity 0.90-0.99 Equivocal > or = 1.00 Consistent with immunityThe presence of rubella IgG antibody suggestsimmunization or past or current infection withrubella virus.THIS TEST WAS PERFORMED AT:[employer] [id number] ZEPEDA MD Rubeola IgG (Measles) 232.00 AU/mL [facility] Comment:AU/mL Interpretation ----- <13.50 Not consistent with .50-16.49 Equivocal>16.49 Consistent with immunityThe presence of measles IgG suggests immunization orpast or current infection with measles virus.For additional information, please refer tohttp://education.Apertio/faq/FLY318(This link is being provided for informational/educational purposes only.) Blood Venous blood specimen / Unknown 07/24/2025 10:54 AM EDT 07/24/2025 1:07 PM EDT us Alyssia Grace DO LAB BLOOD ORDERABLES Final R esult [facility] [address] [place] [phone] * Albumin, Random Urine W/Creatinine (07/24/2025 10:54 AM EDT) Creatinine, Urine 230.20 mg/dL [facility] Microalbumin Urine 9.0 mg/L [facility] Microalbum Creatinine Ratio Ur 3.9 <30 ug/mg cr [facility] Comment:Albumin/Creatinine R atio Reference Ranges: Normal: < 30 ug/mg creatinine Microalbuminuria: 30 - 300 ug/mg creatinineClinical Albuminuria: > 300 ug/mg creatinine Urine (Urine, Random) 07/24/2025 10:54 AM EDT 07/24/2025 12:59 PM EDT Alyssia Grace DO LAB URINE ORDERABLES Final R esult Performing Organization Address City/[facility] Co de Phone Number [facility] [address] [place] [phone] * Hepatitis C Antibody with Reflex to HCV, RNA, Quantitative, Real-Time PCR (07/24/2025 10:54 AM EDT) Hepatitis C Antibody Nonreactive Nonreactive [facility] Comment:Antibodies to HCV no t detected; does not exclude early acuteHCV infection. Blood Venous blood specimen / Unknown 07/24/2025 10:54 AM EDT 07/24/2025 1:07 PM EDT us Alyssia Grace DO LAB BLOOD ORDERABLES Final R esult Performing Organization Address [facility] Co de Phone Number [facility] [address] [place] [phone] * Hepatitis A Antibody, Total (07/24/2025 10:54 AM EDT) Hepatitis A Antibody IgG Nonreactive Nonreactive [facility] Blood Venous blood specimen / Unknown 07/24/2025 10:54 AM EDT 07/24/2025 1:07 PM EDT Alyssia Grace DO LAB BLOOD ORDERABLES Final R esult Performing Organization Address City/[facility] Co de Phone Number [facility] [address] [place] [phone] * Hepatitis B surface antigen, EIA (07/24/2025 10:54 AM EDT) Pathologist [facility] Hepatitis B Surface Ag Negative Negative [facility] Blood Venous blood specimen / Unknown 07/24/2025 10:54 AM EDT 07/24/2025 1:07 PM EDT Alyssia Alexandrecsak DO LAB BLOOD ORDERABLES Final R esult Performing Organization Address City/[facility]/ZIP Co de Phone Number [facility] [address] [place] [phone] * Hepatitis B Core Antibody, Total (07/24/2025 10:54 AM EDT) Hepatitis B Core Antibody Nonreactive Nonreactive [facility] Blood Venous blood specimen / Unknown 07/24/2025 10:54 AM EDT 07/24/2025 1:07 PM EDT Alyssia Sanjay DO LAB BLOOD ORDERABLES Final R esult Performing Organization Address [facility] Co de Phone Number [facility] [address] [place] [phone] * RPR (Monitor) with Reflex to??Titer (07/24/2025 10:54 AM EDT) RPR (Monitor) w/Refl Titer NON-REACTI VE NON-REACT LEI [facility] Comment:THIS TEST WAS PERFOR MED AT:[employer] [id number] ZEPEDA MD Rapid Plasma Reagin Ab Titer TNP [facility] Blood Venous blood specimen / Unknown 07/24/2025 10:54 AM EDT 07/24/2025 1:07 PM EDT Alyssia Sanjay DO LAB BLOOD ORDERABLES Final R esult Performing Organization Address [facility]/ZIP Co de Phone Number [facility] [address] [place] [phone] * HIV-1/2 Antigen and Antibodies, Fourth Generation, with Reflexes (07/24/2025 10:54 AM EDT) HIV AB/AG Nonreactive Nonreactive [facility] Comment:HIV-1 p24 Ag and/or HIV-1/HIV-2 Ab not detected.A test result that is nonreactive does not exclude thepossibility of exposure to or infection with HIV-1 and/orHIV-2. Nonreactive results in this assay for individualswith prior exposure to HIV-1 and/or HIV-2 may be due toantigen and antibody levels that are below the limit ofdetection of this assay.[employer] HIV Ag/Ab Combo assay result andsupplemental assay results should be interpreted inconjunction with the patient's clinical presentation,history and other laboratory results. If the results areinconsistent with clinical evidence, additional testing issuggested to confirm the result. Blood Venous blood specimen / Unknown 07/24/2025 10:54 AM EDT 07/24/2025 1:07 PM EDT Alyssia Grace LAB BLOOD ORDERABLES Final R esult Performing Organization Address City/[facility]/ZIP Co de Phone Number [facility] [address] [place] [phone] * Hepatitis B Surface Antibody, Qualitative (07/24/2025 10:54 AM EDT) Pathologist [facility] ~Hepatitis B Surface Antibody REACTIVE Nonreactive [facility] Comment:REACTIVE: > 11.99 mI U/mL Blood Venous blood specimen / Unknown 07/24/2025 10:54 AM EDT 07/24/2025 1:07 PM EDT Alyssia Grace LAB BLOOD ORDERABLES Final R esult Performing Organization Address City/[facility]/ZIP Co de Phone Number [facility] [address] [place] [phone] * (ABNORMAL) CBC (07/24/2025 10:54 AM EDT) Pathologist [facility] White Blood Count 9.0 4.8 - 10.8 X10*3/uL [facility] Red Blood Count 5.68 4.60 - 5.80 X10*6/uL [facility] Hemoglobin 15.0 14.0 - 18.0 g/dl [facility] Hematocrit 47.8 42.0 - 52.0 % [facility] Mean Corpuscular Volume 84.2 80.0 - 98.0 fL [facility] Mean Corpuscular Hemoglobin 26.4(L) 27.0 - 33.0 pg [facility] Mean Corpuscular HGB Conc 31.4 31.0 - 36.0 g/dl [facility] Red Cell Distribution Width 13.2 11.0 - 16.0 % [facility] Platelet Count 345 160 - 400 X10*3/uL [facility] Mean Platelet Volume 10.5 9.4 - 12.4 fL [facility] NRBC Pct Auto 0.0 0.0 - 0.2 /100WBC [facility] NRBC Abs Auto 0.000 0.0 - 0.012 X10*3/uL [facility] Blood Venous blood specimen / Unknown 07/24/2025 10:54 AM EDT 07/24/2025 1:07 PM EDT us Alyssia Grace DO LAB BLOOD ORDERABLES Final R esult [facility] [address] [place] [phone] * Varicella zoster antibody, IgG (07/24/2025 10:54 AM EDT) Varicella IgG Antibody 5.94 S/CO [facility] Comment:Signal to Cut-off S/ CO [...] Antibody Immunity Screen, ACIF.THIS TEST WAS PERFORMED AT:[employer] [phone] ZEPEDA MD Blood Venous blood specimen / Unknown 07/24/2025 10:54 AM EDT 07/24/2025 1:07 PM EDT Alyssia Grace LAB BLOOD ORDERABLES Final R esult Performing Organization Address [facility] Co de Phone Number [facility] [address] [place] [phone] * TSH (07/24/2025 10:54 AM EDT) Thyroid Stimulating Hormone 1.22 0.32 - 4.0 uIU/mL [facility] Comment:TSH 3rd Generation ( [facility]) Blood Venous blood specimen / Unknown 07/24/2025 10:54 AM EDT 07/24/2025 1:07 PM EDT Alyssia Grace LAB BLOOD ORDERABLES Final R esult Performing Organization Address [facility] Co de Phone Number [facility] [address] [place] [phone] * T4, Free (07/24/2025 10:54 AM EDT) Free T4 (Free Thyroxine) 0.98 0.71 - 1.85 ng/dL [facility] Blood Venous blood specimen / Unknown 07/24/2025 10:54 AM EDT 07/24/2025 1:07 PM EDT Alyssia Grace LAB BLOOD ORDERABLES Final R esult Performing Organization Address [facility] Co de Phone Number [facility] [address] [place] [address] [place] [phone] * Hemoglobin A1c (07/24/2025 10:54 AM EDT) Hemoglobin A1c 5.6 <6.0 % [facility] Comment:Hemoglobin A1C Refer ence Range Adults: 4.8 - 6.0 % Non diabetic: < 6.0 % Goal: < 7.0 %Additional Action Suggested: > 8.0 %Note: Hemoglobin A1c results are invalid for patients with abnormal amounts of HbF. Blood transfusions may impact the HbA1c concentration in the patient sample. Estimated Average Glucose 114 mg/dL [facility] Comment:eAG = Estimated ave rage glucose which is %A1C expressed asaverage glucose, using the formula of the H7R-AqegnjmVzbclwl Glucose study (ADAG), Diabetes Care, Vol.31,#8,May. 2007 Blood Venous blood specimen / Unknown 07/24/2025 10:54 AM EDT 07/24/2025 1:07 PM EDT us Alyssia Grace DO LAB BLOOD ORDERABLES Final R esult [facility] [address] [place] [phone] * (ABNORMAL) Hepatic Function Panel (07/24/2025 10:54 AM EDT) Bilirubin, Total 0.4 0.0 - 1.0 mg/dL [facility] Bilirubin, Direct 0.1 0.0 - 0.5 mg/dL [facility] Aspartate Amino Transferase 38(H) 5 - 37 U/L [facility] Alanine Aminotransferase 55(H) 0 - 40 U/L [facility] Total Protein 8.0 6.5 - 8.0 g/dL [facility] Albumin Level 5.4(H) 3.5 - 5.0 g/dL [facility] Alkaline Phosphatase 78 39 - 117 U/L [facility] Blood Venous blood specimen / Unknown 07/24/2025 10:54 AM EDT 07/24/2025 1:07 PM EDT us Alyssia Grace DO LAB BLOOD ORDERABLES Final R esult Performing Organization Address [facility] Co de Phone Number [facility] [address] [place] [phone] * (ABNORMAL) Lipid Panel, Standard (07/24/2025 10:54 AM EDT) Triglycerides 96 <150 mg/dL [facility] Comment:Desirable Triglyceri de: less than 150 mg/dLBorderline High Triglyceride 150-199 mg/dLHigh Triglyceride: 200-499 mg/dLVery High Triglyceride: greater than or equal to 5OO mg/dL Cholesterol 247(H) <200 mg/dL [facility] Comment:Desirable Cholestero l: less than 200 mg/dLBorderline High Cholesterol: 200-239 mg/dLHigh Cholesterol: greater than 239 mg/dL LDL Cholesterol Calculated 185(H) <100 mg/dL [facility] Comment:Desirable LDL: less than 100 mg/dLNear Optimal/Above Optimal LDL: 110- 129 mg/dLBorderline High LDL: 130-159 mg/dLHigh LDL: 160-189 mg/dLVery High LDL: greater than or equal to 190 mg/dL HDL Cholesterol 43 >40 mg/dL [facility] Comment:Desirable HDL: great er than 40 mg/dL Note: This HDL assay may give artificially low results in patients with liver disease. Blood Venous blood specimen / Unknown 07/24/2025 10:54 AM EDT 07/24/2025 1:07 PM EDT us Alyssia Grace DO LAB BLOOD ORDERABLES Final R esult Performing Organization Address City/[facility]/ZIP Co de Phone Number [facility] [address] [place] [phone] * Basic Metabolic Panel (07/24/2025 10:54 AM EDT) Sodium 143 135 - 145 mmol/L [facility] Potassium 3.5 3.3 - 5.1 mmol/L [facility] Chloride 107 96 - 108 mmol/L [facility] Carbon Dioxide 28 22 - 29 mmol/L [facility] Anion Gap 12 12 - 20 [facility] Urea Nitrogen (BUN) 9 9 - 16 mg/dL [facility] Creatinine, Serum 0.86 0.5 - 1.4 mg/dL [facility] Estimated Glomerular Filt Rate >60 [facility] Comment:Chronic Kidney Disea se: Estimated GFR < 60 mL/min/1.25y3Rytxcb Kidney Disease: Estimated GFR < 15 mL/min/1.73m2 Glucose 84 60 - 115 mg/dL [facility] Calcium 9.9 8.4 - 10.2 mg/dL [facility] Blood Venous blood specimen / Unknown 07/24/2025 10:54 AM EDT 07/24/2025 1:07 PM EDT Alyssia Grace DO LAB BLOOD ORDERABLES Final R esult Performing Organization Address City/State/[facility] Co de Phone Number [facility] [address] [place] [phone] * XR Tibia Fibula 2 Views Right (07/24/2025 10:45 AM EDT) Anatomical Region Laterality Modality Lower Extremities, Lower Leg Right Rad iographic Imaging 07/24/2025 10:4 5 AM EDT Narrative 07/24/2025 10:59 AM EDT [address] [address] XRay Report Signed Patient: Marco Chapman MR#: [id number] : 1995 Acct:[id number] Age/Sex: 29 / M ADM Date: 07/24/25 Loc: HO.HHCX Attending Dr: Alyssia Grace DO Ordering Physician: Alyssia Grace DO Date of Service: 07/24/25 Procedure(s): XR tibia fibula RT 2V Accession Number(s): [id number] cc: Alyssia Grace DO Reason for Exam: [...] 07/24/25 1056 DD/ 1045 TD/TT: 07/24/25 1049 Features Reporter: SONIDO Procedure Note Donotuseinterpreter, Image - 07/24/[address] [address] XRay Report Signed Patient: Marco ChapmanMR#: [id number] : 1995Acct:[id number] Age/Sex: 29 / MADM Date: 07/24/25 Loc: HO.HHCX Attending Dr: Alyssia Grace DO Ordering Physician: Alyssia Grace DO Date of Service: 07/24/25 Procedure(s): XR tibia fibula RT 2V Accession Number(s): [id number] cc: Alyssia Grace DO Reason for Exam: [...] 07/24/25 1056 DD/ 1045 TD/TT: 07/24/25 1049 Features Reporter: SONIDO Alyssia Grace DO IMG XR PROCEDURES Final Resu lt from Last 3 Months Insurance LIMITED HSN FULL DENTAL-[facility] MEDICAID STAND ADULT Care Teams Correctional Medicine Physician Relationship Specialty Start Date End Date Alyssia Grace DO [address] [place] [phone] PCP - General Family Medicine 07/24/25
== END 2025-09-24 09:15 | disposition home or self-care (01) ==
LOC: HO.NEURO 09:14
PROVIDERS: PCP Family Medicine; Visit Provider Family Medicine
DX: M79.604 Pain in right leg (principal); G89.29 Other chronic pain
CPT/HCPCS: 95886; 95910

== ENCOUNTER → 2025-09-24 09:15 | Outpatient (BNV) | payer MEDICAID, SELFPAY | PROVIDERS: PCP Family Medicine; Visit Provider Psychiatry & Neurology Neurology | DX: M79.604 Pain in right leg (principal); G62.89 Other specified polyneuropathies | CPT/HCPCS: 95886; 95909 ==